=== PATIENT | female | born 1945 | race Caucasian/White ===

== ENCOUNTER 2016-08-08 16:14 | Emergency (ER) | payer MEDICARE, OTHER ==
--- NOTE | 2016-08-08 17:12 | ERNOTE ---
Medical Problem HPI - Narrative Date of Service: 08/08/16 - General Chief Complaint: General Assessment Time Seen by Provider: 08/08/16 17:04 Source: patient, RN notes reviewed Exam Limitations: no limitations - Immun/Allergies/Home Medications Immunizations: IMMUNIZATION HX Immunizations Up to Date Yes History of Influenza Vaccine Yes Hx Pneumococcal Vaccination Yes Allergies/Adverse Reactions: Allergies iron Allergy (Verified 08/08/16 16:30) borax Allergy (Uncoded 08/08/16 16:30) Home Medications: HOME MEDICATIONS Bimatoprost [Lumigan] 1 drop OP HS 12/02/15 [Last Taken Unknown] Timolol Maleate [Timoptic] 1 drop RIGHTEYE 0700 12/02/15 [Last Taken Unknown] - History of Present History Narrative: Patient presents with numbness and tingling sensation to her arms and legs and face. Patient says she's had a stroke roughly a month ago. Left ear left sided facial palsy slight weakness on the left side. She's been under a lot of stress. She has seen her doctor who started her on a new anxiety medicine. Sertaline, she does feel maybe this is anxiety related, weak in her legs. Symptoms since then in the ER have improved the numbness and tingling has gone but she still slightly weak in the leg she describes it as "Jell-O" denies any chest pain headache abdominal pain shortness of breath no fever or nasal congestion runny nose. She presented to the ER by private vehicle, and is fully ambulatory. Date (Duration): 08/08/16 Time (Timing): 13:00 Timing: intermittent Review of Systems - Review of Systems Constitutional: Absent: fever, chills EYE: Absent: blurred vision, double vision, vision changes Respiratory: Absent: shortness of breath, cough, orthopnea Cardiology: Absent: chest pain, palpitations, syncope Musculoskeletal: Absent: back pain, muscle pain, muscle stiffness, neck pain All Other Systems: All systems neg except as marked - Patient's Past Medical History Patient History - Medical: Glaucoma Patient History - Cancer: No Hx of Cancer Patient History - Surgical Procedures: Cataracts, Tubal Ligation, Other - Social History Living Situations: home Smoking Status: Current every day smoker Have you smoked in the past 12 months: Yes Alcohol Use: none Drug Use: none Physical Exam - Physical Exam General Appearance: Present: wd/wn, alert, no apparent distress Ears, Nose, Throat: Present: normal ENT inspection, normal pharynx Neck: Present: normal inspection, nontender Respiratory: Present: no respiratory distress, normal breath sounds, no accessory muscle use, chest nontender, lungs clear Cardiovascular/Chest: Present: regular rate, rhythm, no murmur, normal peripheral pulses Gastrointestinal/Abdominal: Present: normal bowel sounds, nontender, nondistended, soft Back Exam: Present: normal inspection, normal range of motion, no CVA tenderness , no vertebral tenderness Extremity Exam: Present: normal inspection, non-tender, no edema, normal range of motion Neurological Exam: Present: alert, oriented, normal mood/affect, no motor/ sensory deficits, facial droop - left-sided facial droop that's chronic in nature at baseline., other - patient does not have any drift no aphasia no slurred speech and left facial droop that's at baseline good equal power in the lower and upper extremities 5 out of 5 Skin Exam: Present: normal color, warm/dry Lymphatic Exam: Present: no adenopathy ED Progress - Results and Orders Patient's Lab Results:: I have reviewed the patient's lab results. - Vital Signs Patient's Vital Signs:: I have reviewed the patient's vital signs. Vital Signs: Vital Signs 08/08/16 16:26 Temperature 35.9 C L Pulse Rate 73 Respiratory 14 Rate Blood Pressure 168/105 O2 Sat by Pulse 95 Oximetry - Progress/Reassessment Chief Complaint: General Assessment Progress:: Improved - Transfer of Care Expected Disposition: Discharge Additional Notes: Patient told well no further symptoms wants to go home. He'll continue home meds follow-up family doctor in 2-3 days return back to the ER with any change or worsening symptoms. To stop her current medications warning Signs and Symptoms have been reviewed with the patient returned back to the ER with good understanding Departure - Departure Clinical Impression: Paresthesia, Anxiety, History of CVA (cerebrovascular accident) Disposition: Home Follow Up Needed Condition: Fair Instructions: Panic Attacks, [id number], Paresthesia, [id number] Referrals: Otto Winslow MD [Primary Care Provider] -
[2016-08-08] MEDS ORDERED: LORazepam 1 MG TABLET PO ONE (17:13)
[2016-08-08 17:32] LABS: Mean Corpuscular Hemoglobin 30.4 pg (27-31); Mean Corpuscular Hgb Conc 34.2 g/dl (32-36); Mean Platelet Volume 9.2 fl (6.0-9.5); Neutrophil # 7.8 K/mm3 (1.3-6.0); Neutrophil % 84.3 % (42-75.0); Platelet Count 273 K/mm3 (150-450); Red Blood Count 4.27 M/mm3 (4.2-5.4); Red Cell Distribution Width 12.3 % (11.5-14.0); White Blood Count 9.3 K/mm3 (4.0-10.5)
[2016-08-08] MEDS ORDERED: LORazepam 1 MG TABLET ONE (17:42)
[2016-08-08 17:47] LABS: BUN/Creatinine Ratio 12.3 (9.0-21.6)
[2016-08-08 17:48] LABS: Albumin * 3.6 gm/dl (3.4-5.0); Anion Gap 11.6 mmol/L (6.8-13.8); Bilirubin, Total 0.3 mg/dL (0.0-1.1); Ca. Corrected For Albumin 8.7 mg/dL (8.4-10.2); Calcium * 8.7 mg/dL (7.9-10.9); Carbon Dioxide 25.9 mmol/L (24-32.6); Potassium 3.5 mmol/L (3.4-4.6); Total Protein 6.9 gm/dL (6.2-8.2)
[2016-08-08 18:16] VITALS: BP 155/70
[2016-08-08 18:22] LABS: Urine Appearance Clear; Urine Bacteria None Seen; Urine Bilirubin Negative (NEGATIVE); Urine Blood 10 /ul (NEGATIVE); Urine Color Yellow; Urine Ketone 5 mg/dL (NEGATIVE); Urine Nitrite Negative (NEGATIVE); Urine Protein Negative (NEGATIVE); Urine RBC 0-5 /hpf (0-5); Urine Urobilinogen Normal (NORMAL); Urine WBC 0-5 /hpf (0-5)
== END 2016-08-08 18:38 | disposition home or self-care (01) ==
LOC: ER 16:14
DX: F41.9 Anxiety disorder, unspecified (principal); R20.0 Anesthesia of skin; Z86.73 Personal history of transient ischemic attack (TIA), and cerebral infarction without residual deficits; F17.200 Nicotine dependence, unspecified, uncomplicated

== ENCOUNTER 2016-09-06 18:03 | Emergency (ER) | payer MEDICARE, OTHER ==
[2016-09-06] MEDS ORDERED: ALPRAZolam 0.25 MG TABLET PO ONE (18:27)
[2016-09-06] MEDS ORDERED: ALPRAZolam 0.25 MG TABLET ONE (18:31)
--- NOTE | 2016-09-06 18:32 | ERNOTE ---
Medical Problem HPI - General Chief Complaint: General Assessment Time Seen by Provider: 09/06/16 18:07 Source: patient Exam Limitations: no limitations - Immun/Allergies/Home Medications Immunizations: IMMUNIZATION HX Immunizations Up to Date Yes History of Influenza Vaccine Yes Hx Pneumococcal Vaccination Yes Allergies/Adverse Reactions: Allergies iron Allergy (Verified 09/06/16 18:17) borax Allergy (Uncoded 09/06/16 18:17) Home Medications: HOME MEDICATIONS Bimatoprost [Lumigan] 1 drop OP HS 12/02/15 [Last Taken Unknown] Timolol Maleate [Timoptic] 1 drop RIGHTEYE 0700 12/02/15 [Last Taken Unknown] ALPRAZolam [Xanax] 0.25 mg PO BID PRN #10 tab 09/06/16 [Last Taken Unknown] - History of Present History Narrative: Patient is here as she is not feeling well. She had a stroke on 07/21/16, was treated with thrombolytics and flown to [facility], she still has some left sided facial weakness. She denies any current new weakness, only states that both legs 'feel like noodles' and this does not feel like a stroke' She has been very anxious and stressed, about a year ago her started to have multiple health problems and she had the CVA in June. She tried a couple different antidepressants, had a reaction to zoloft and when given prescription of lexapro was afraid to take it as the side effects listed CVA and glaucoma which she both has Review of Systems - Review of Systems Constitutional: Present: malaise. Absent: recent illness, fever EYE: Absent: blurred vision, double vision ENT: Absent: nose congestion, sore throat Respiratory: Present: shortness of breath, cough Cardiology: Present: chest pain - one brief stab earlier today Gastrointestinal/Abdominal: Absent: nausea, vomiting, diarrhea, abdominal pain Genitourinary: Present: no symptoms reported Skin: Absent: rash Neurological: Present: See HPI, weakness. Absent: headache - Patient's Past Medical History Patient History - Medical: Anxiety, Depression, Glaucoma Patient History - Cardiac/Respiratory: CVA/Stroke Patient History - Cancer: No Hx of Cancer Patient History - Surgical Procedures: Cataracts, Tubal Ligation, Other Patient History - Other: None - Social History Living Situations: spouse Abuse History: No History of abuse Psych History: Hx of Anxiety, Hx of Depression Smoking Status: Current every day smoker Have you smoked in the past 12 months: Yes Do you dip or chew tobacco: No Patient requests Smoking Cessation Consult: No Initiate information on Smoking Cessation: No Alcohol Use: none Drug Use: none - Immunizations Immunizations Up to Date: Yes Hx Pneumococcal Vaccination: Yes History of Influenza Vaccine: Yes Physical Exam - Physical Exam General Appearance: Present: wd/wn, alert, no apparent distress, anxious Eye Exam: Normal inspection: bilateral, PERRL: bilateral, EOMI: bilateral Ears, Nose, Throat: Present: normal ENT inspection, hearing grossly normal, normal pharynx Neck: Present: normal inspection, nontender, supple Respiratory: Present: no respiratory distress, no accessory muscle use, lungs clear, decreased breath sounds Cardiovascular/Chest: Present: regular rate, rhythm, no murmur Gastrointestinal/Abdominal: Present: nontender, nondistended, soft Extremity Exam: Present: normal inspection, no edema Neurological Exam: Present: alert, oriented, normal mood/affect, no motor/ sensory deficits, 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 - Vital Signs Patient's Vital Signs:: I have reviewed the patient's vital signs. Vital Signs: Vital Signs 09/06/16 18:07 Temperature 36.7 C Pulse Rate 81 Respiratory 15 Rate Blood Pressure 182/84 O2 Sat by Pulse 99 Oximetry - EKG EKG: NSR, unchanged from - 07/21/2016, other - no acute changes EKG read: Interp. by me - Progress/Reassessment Chief Complaint: General Assessment Progress Note-Subjective: 09/06/16 19:24 patient feeling much better, calm and relaxed discussed plan and follow up, difference between acute relieve medication and daily meds Departure - Departure Clinical Impression: Anxiety Disposition: Home self-care Condition: Good Instructions: Panic Attacks, [id number] Additional Instructions: call Dr Winslow for follow up discuss with Dr Winslow and possibly your pharmacist what anti anxiety medication would be best for you and whether the lexapro is safe to take take the xanax as needed Referrals: Otto Winslow MD [Primary Care Provider] - Prescriptions: ALPRAZolam [Xanax] 0.25 mg PO BID PRN #10 tab PRN Reason: Anxiety
--- OUTSIDE RECORDS SUMMARY | 2016-09-06 18:39 | XMS REPORT | Continuity of Care Document ---
:1945 Author Organization [facility] ([facility]) Address [address] [place] [address] Phone [phone] Care Team Providers Name Role Phone Otto Winslow Primary Care Provider [phone] Source Comments This disclosure is being made pursuant to the Care Everywhere program, applicable federal and state laws, and may not contain all informaitonavailable regarding this patient.[facility] ([facility]) Active Allergies and Adverse Reactions No Known Allergies Current Medications Prescription Sig. Disp. Refills Start Date End Date Status bimatoprost (LUMIGAN) Instill 1 Drop onto Active 0.01 % ophthalmic both eyes every solution evening. timolol 0.5 % Instill 1 Drop onto Active ophthalmic the right eye every gel-forming solution morning. umeclidinium (INCRUSE Use 1 Puff by Active ELLIPTA) 62.5 inhalation daily. mcg/actuation inhaler aspirin 81 mg Take 1 tablet (81 30 tablet 11 07/23/2016 Active chewable tablet mg total) by mouth daily. atorvastatin 40 mg Take 1 tablet (40 30 tablet 11 07/23/2016 Active tablet mg total) by mouth daily. Active Problems Problem Noted Date Facial droop - left lower 07/22/2016 Dysarthria 07/22/2016 Left hand weakness 07/22/2016 Most Recent Encounters Date Type Specialty Providers Description 07/23/2016 Office Visit Heart and Vascular Default, Other Chief Comp: Patient Billg - Defo Reported Reason For Visit 07/23/2016 Hospital Encounter Heart and Vascular Olaf Ramírez Chief Comp: Patient MD Josué Reported Reason For Sigurdsson, Visit MD Nasrin 07/22/2016 - Hospital Encounter General Care Dre Celaya Dx: Dysarthria 07/23/2016 Inpatient - Steven Farr MD (Primary Dx) Sanford Walker MD Guerrero, Waldo (Neuro)MD Social History Tobacco Use Types Packs/Day Years Used Date Current Every Day Smoker 2 Alcohol Use Drinks/Week oz/Week Comments No Last Filed Vital Signs Vital Sign Reading Time Taken Blood Pressure 167/75 07/23/2016 12:14 PM SPA ASSOCIATE Pulse 66 07/23/2016 8:15 AM SPA ASSOCIATE Temperature 36.5 C (97.7 F) 07/23/2016 12:14 PM SPA ASSOCIATE Respiratory Rate 18 07/23/2016 6:40 AM SPA ASSOCIATE Height 1.575 m (5' 2.01") 07/23/2016 3:01 PM SPA ASSOCIATE Weight 70.6 kg (155 lb 10.3 oz) 07/23/2016 3:01 PM SPA ASSOCIATE Body Mass Index 28.46 07/23/2016 3:01 PM SPA ASSOCIATE Oxygen Saturation 93% 07/23/2016 12:14 PM SPA ASSOCIATE Plan of Care Health Maintenance Due Date Last Done Comments Hepatitis B Vaccine (1 of 3 - Primary 1945 Series) Tdap Vaccine 1954 Td Vaccine 1961 Mammogram 1983 Colonoscopy 05/21/1993 Zoster Vaccine 2003 Osteoporosis Screening (DXA Bone Density) 2008 Pneumococcal Vaccine (1 of 2 - PCV13) 2008 Influenza Vaccine: Seasonal (#1) 02/23/2016 Lipid Disorder Screening 07/23/2021 07/23/2016, 07/22/2016 Results from Last 3 Months ECHO ADULT - TRANSESOPHAGEAL ECHOCARDIOGRAM (RICARDO) (07/26/2016 1:32 PM) Component Value Range Interpretation Summary TRANSESOPHAGEAL ECHOCARDIOGRAM 1. The interatrial septum is intact with no evidence for an atrial septal defect or patent foramen ovale. 2. No thrombus is detected in the left atrial appendage. 3. Descending aorta atheroma noted. 4. Mild aortic valve insufficiency by color Doppler. Patient Height (cm) 157.5 cm Patient Weight (kg) 70.3 kg Systolic Pressure (mmHg) 161 mmHg Diastolic Pressure (mmHg) 83 mmHg BSA (meters^2) 1.7 m^2 Left Ventricle (LV) Normal left ventricular size. No obvious LV thrombus noted. Probable left ventricular hypertrophy. Low normal left ventricular systolic function. LV Ejection Fraction=50-55% (based on visual estimate). Normal left ventricular wall motion Right Ventricle (RV) Normal right ventricular size. Normal right ventricular systolic function. Left and Right Atria (LA, RA) Mildly enlarged left atrial size. No evidence of left atrial mass / thrombus No thrombus is detected in the left atrial appendage. No spontaneous contrast in LA. Normal right atrial size. Lipomatous hypertrophy of the interatrial septum The interatrial septum is intact with no evidence for an atrial septal defect. No interatrial septal aneurysm No interatrial shunt visualized by color doppler No right to left shunt by saline contrast Mitral Valve (MV) Normal mitral valve morphology and leaflet mobility No mitral valve stenosis. Mildly calcified mitral annulus No mitral regurgitation by color Doppler. Tricuspid Valve (TV) Normal tricuspid valve morphology There are no mobile echodensities seen on the TV to support endocarditis. Trace Tricuspid regurgitation, may be physiologic Aortic Valve (AoV) Trileaflet AoV without calcification or restricted leaflet mobility There are no mobile echodensities seen on the AoV to support endocarditis. Mild aortic insufficiency by color Doppler. Pulmonic Valve (PV) Normal pulmonic valve Trace pulmonic valve insufficiency by doppler. There are no mobile echodensities on the pulmonic valve to support vegetations. Aorta and Pulmonary Artery (Ao, PA) The ascending aorta is normal size Descending aorta atheroma noted Pericardium/Pleura There is no pericardial effusion. Procedures RICARDO ([id number]) Limited Doppler ([id number]) Color Flow ([id number]) Saline bubble study ([id number]) Informed consent was obtained after thorough explanation of the procedure, risks and benefits, with time allowed for the patient or patient medical collections representative's concerns and questions Pre-procedure ASA Category IV PreProcedure OF=782/83 mmHg. PreProcedure HR=67 bpm Pre Procedure O2 Sat=98 %. Pre Procedure RR=16 per min. Height=62 . Yzxupn=727 . BSA=1.76 m^2. RICARDO probe inserted proceeded without difficulty or apparent complications. RICARDO scope number 001 utilized for this exam. Post Procedure HD=449/55 mmHg. Post Procedure HR=60 bpm Post Procedure O2 Sat=95 %. Post Procedure RR=18 per min. Versed 1mg IV Fentanyl 25mcg IV Patient recovery: Patient recovered and dismissed in stable condition I was present for the morris portions of the procedure defined as conscious sedation, RICARDO probe insertion, Echo imaging, Probe removal, and patient recovery Inf. Vena Cava (IVC) / Pulm. Veins The IVC size appears normal (Visual estimate). IVC diameter change with respiration cannot be accurately assessed due to technical limitations. The following pulmonary veins were noted in normal position: 'left superior and right lower pulmonary veins' . 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 Component Value Range Glucose, Accu-Chek 74 65-99 mg/dL Specimen Blood, capillary PT/INR (PROTHROMBIN TIME/INR) VENOUS (07/23/2016 7:55 AM)Only the most recent of2 resultswithin the time period is included. Component Value Range PT (Prothrombin Time) 12 9-12 secs INR 1.2 <4.0 Specimen Blood HEMOGLOBIN A1C (07/23/2016 7:55 AM)Only the most recent of2 resultswithin the time period is included. Component Value Range Hemoglobin A1c 5.0Comment: 4.8-6.0 % Glycemic Control Guidelines: Non-diabetic <6% Goal <7% Therapeutic Action >8% Estimated Average Glucose 97Comment: mg/dL The estimated average glucose (eAG) calculated from the HbA1c changed on 13/03.See Laboratory Bulletins in the Department of Pathology Laboratory Services Handbook for a full discussion.Not e that the new calculated glucose will now be lower.The A1c result is unchanged. Specimen Whole Blood ALKALINE PHOSPHATASE (07/23/2016 7:55 AM) Component Value Range ALP 84 35-104 U/L Specimen Blood ALANINE AMINOTRANSFERASE (07/23/2016 7:55 AM) Component Value Range ALT 11Comment: 0-33 U/L The upper limit of normal for alanine aminotransferase (ALT) reference ranges for adults is controversial with some authorities recommending limit as low as 30 U/L for males and 19 U/L for females. Th ere is increased incidence of subclinical liver disease (e.g., early steatohepatitis) in patients with ALT values in the range of 31-41 U/L for males and 20-33 U/L for females. ALT values should alway s be interpreted in conjunction with clinical history, physical examination findings, and, if applicable, data from other diagnostic tests. Specimen Blood ASPARTATE AMINOTRANSFERASE (07/23/2016 7:55 AM) Component Value Range AST 19Comment: 0-32 U/L Adult reference ranges updated on 06/19/13 at 830am Specimen Blood TRIGLYCERIDES (07/23/2016 7:55 AM) Component Value Range Triglycerides 124Comment: 0-150 mg/dL Reference Ranges: Normal:<150 mg/dL Borderline-high:150-199 mg/dL High: 200-499 mg/dL Very high: > nm=395 mg/dL Specimen Blood HIGH DENSITY LIPOPROTEIN CHOL (07/23/2016 7:55 AM) Component Value Range HDL Cholesterol 43 >=41 mg/dL LDL - Calculated 121 <=130 mg/dL Non-HDL Cholesterol (Calc) 146 mg/dL Specimen Blood CHOLESTEROL (07/23/2016 7:55 AM) Component Value Range Cholesterol 189Comment: mg/dL Reference Range: Less than 200 mg/dL - desirable 200 - 240 mg/dL - increased risk Above 240 mg/dL - significant risk Specimen Blood PHOSPHORUS (07/23/2016 7:55 AM)Only the most recent of2 resultswithin the time period is included. Component Value Range Phosphorus 3.3Comment:New reference range installed 05/06/15. 2.5-4.5 mg/dL Specimen Blood MAGNESIUM (07/23/2016 7:55 AM)Only the most recent of2 resultswithin the time period is included. Component Value Range Magnesium 2.0 1.5-2.9 mg/dL Specimen Blood BASIC METABOLIC PANEL W/ CALCIUM (CHEM 8) (07/23/2016 7:55 AM)Only the most recent of2 resultswithin the time period is included. Component Value Range Sodium 145 135-145 mEq/L Potassium 3.7 3.5-5.0 mEq/L Chloride 110(H) 95-107 mEq/L CO2 24 22-29 mEq/L Anion Gap 11 8-18 mEq/L BUN 10 10-20 mg/dL Creatinine 0.7Comment: 0.5-1.0 mg/dL Creatinine switched to enzymatic method on 12/01/2010.GFR equation switched to IDMS-traceable MDRD equation on 12/01/2010. Calculated GFR values are not valid in clinical settings where serum creatinine is changing. Glucose 89Comment: 65-99 mg/dL The Expert Committee on the Diagnosis and Classification of Diabetes has defined impaired fasting glucose as greater than or equal to 100 mg/dL but less than 126 mg/dL.(Diabetes Care 28 (Suppl 1)S41,2005) Calcium 8.2(L) 8.5-10.5 mg/dL Calculated GFR 82 >60 mL/min/1.73 m2 Specimen Blood CBC (COMPLETE BLOOD COUNT) (07/23/2016 7:55 AM)Only the most recent of2 resultswithin the time period is included. Component Value Range WBC Count 7.0 3.7-10.5 K/MM3 RBC Count 4.40 4.00-5.20 M/MM3 Hemoglobin 13.1 11.9-15.5 g/dL Hematocrit 40 35-47 % MCV (Mean Corpuscular Volume) 90 82-99 FL MCH (Mean Corpuscular Hemoglobin) 30 25-35 PG MCHC (Mean Corpuscular Hemoglobin Concentration) 33 32-36 % Platelet Count 196 150-400 K/MM3 MPV (Mean Platelet Volume) 9.9 9.4-12.3 FL RBC Dist Width-STD 43.3 36.4-46.3 FL RBC Distrib Width 13.2 9.0-14.5 % Nucleated RBC 0 /[address] Blood [address] BRAIN WO CONTRAST ([id number]) (07/22/2016 11:42 PM) Impressions Impression: Right MCA stroke without evidence of hemorrhage. This final report is in agreement with the critical and emergent preliminary findings reported by the psychiatry resident container coordinator. Narrative Procedure: CT BRAIN WO CONTRAST ([id number]) Indication: Stroke Technique: Axial CT of the brain without IV contrast. Sagittal and coronal reformations are also provided for review. Comparison: MRI dated 07/22/2016 Findings: Redemonstration of the right MCA distribution stroke without evidence of hemorrhage. The ventricles, cortical sulci and basal cisterns are symmetric and age appropriate. Normal brainstem and posterior fossa. The scalp and calvarium are unremarkable. Procedure Note Placido, Incoming Imaging Results - TueJul 23, 2016 10:28 AM SPA ASSOCIATE Procedure: CT BRAIN WO CONTRAST ([id number]) Indication: Stroke Technique: Axial CT of the brain without IV contrast. Sagittal and coronal reformations are also provided for review. Comparison: MRI dated 07/22/2016 Findings: Redemonstration of the right MCA distribution stroke without evidence of hemorrhage. The ventricles, cortical sulci and basal cisterns are symmetric and age appropriate. Normal brainstem and posterior fossa. The scalp and calvarium are unremarkable. IMPRESSION Impression: Right MCA stroke without evidence of hemorrhage. This final report is in agreement with the critical and emergent preliminary findings reported by the psychiatry resident container coordinator. ECG - EKG 12 LEAD (07/22/2016 8:41 AM) Component Value Range ECG SEVERITY - NORMAL ECG - VENT. RATE 75 bpm RR 800 ms P-R INTERVAL 180 ms QRSD INTERVAL 82 ms QT INTERVAL 416 ms QTC INTERVAL 465 ms P AXIS 51 degrees QRS AXIS 40 degrees T WAVE AXIS 19 degrees REPORT SINUS RHYTHM No prior tracing available for comparison Interpreting Physician: RENATA CERNA MD HEPATIC FUNCTION PANEL (07/22/2016 6:19 AM) Component Value Range Albumin 3.6 3.4-4.8 g/dL ALP 79 35-104 U/L Bilirubin Total 0.3 <=1.2 mg/dL Bilirubin, Direct <0.2 0.0-0.2 mg/dL AST 20 0-32 U/L ALT 11 0-33 U/L Total Protein 6.1 6.0-8.0 g/dL Specimen Blood MRI BRAIN W/WO CONTRAST ([id number]) (07/22/2016 3:42 AM) Impressions Impression: 1.Subacute infarct in the right motor strip. 2. Elongated appearance of the vessels compatible with sequela of chronic hypertension. Otherwise unremarkable head and neck MRA. Findings known to the primary team at the time of dictation. This final report is in agreement with the critical and emergent preliminary findings reported by the psychiatry resident container coordinator. Narrative Procedure: MRI BRAIN W/WO CONTRAST ([id number]), MRA HEAD AND NECK W/WO CONTRAST ([id number], [id number]) Indication: Stroke Technique: 1. Multisequence, multiplanar MRI of the brain before and after the uneventful administration of 10 mL GadavistIV contrast. 2. Multisequence, multiplanar MRA of the neck before and after the uneventful administration of 10 mL GadavistIV contrast. Source and MIP images were obtained and reviewed. 3D images were processed on a separate workstation. 3. Multisequence, multiplanar MRA of the head before and after the uneventful administration of 10 mL GadavistIV contrast. Source and MIP images were obtained and reviewed. 3D images were processed on a separate workstation. Comparison: None Findings: - MRI Brain: There is diffusion restriction in a small region of the right MCA distribution, mostly affecting the right precentral gyrus. Small focus of enhancement in this region is also seen. 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 A focus of blooming on GRE is demonstrated in the right cerebellar hemisphere, likely representing a focal old microhemorrhage versus cavernoma. Otherwise unremarkable brainstem and posterior fossa. The ventricles, cortical sulci and basal cisterns are also otherwise symmetric and appropriate. The pituitary and suprasellar region are unremarkable. Major intracranial flow-voids are preserved. Normal orbits. The paranasal sinuses and mastoid air cells are clear. Normal bone marrow signal. - MRA Neck: Diffusely elongated appearance of the vessels bilaterally compatible with sequela of hypertension. There is classic aortic branching without significant ostial stenosis. There is normal course and caliber of the remainder of the common carotid arteries. Internal and external carotid arteries are within normal limits. The vertebral arteries originate from the subclavian arteries without significant ostial stenosis. There is normal course and caliber of the cervical vertebral arteries. - MRA Head: Diffusely elongated appearance of the vessels bilaterally compatible with sequela of hypertension. The distal internal carotid arteries are unremarkable. Normal distal vertebral and basilar arteries. There is no significant stenosis in the anterior, middle or posterior cerebral arteries. No evidence of aneurysm or malformation. - Extravascular Findings: Grossly normal thyroid and paravertebral soft tissues. Procedure Note Placido, Incoming Imaging Results - [facility] Jul 22, 2016 2:32 PM SPA ASSOCIATE Procedure: MRI BRAIN W/WO CONTRAST ([id number]), MRA HEAD AND NECK W/WO CONTRAST ([id number], [id number]) Indication: Stroke Technique: 1. Multisequence, multiplanar MRI of the brain before and after the uneventful administration of 10 mL Gadavist IV contrast. 2. Multisequence, multiplanar MRA of the neck before and after the uneventful administration of 10 mL Gadavist IV contrast. Source and MIP images were obtained and reviewed. 3D images were processed on a separate workstation. 3. Multisequence, multiplanar MRA of the head before and after the uneventful administration of 10 mL Gadavist IV contrast. Source and MIP images were obtained and reviewed. 3D images were processed on a separate workstation. Comparison: None Findings: - MRI Brain: There is diffusion restriction in a small region of the right MCA distribution, mostly affecting the right precentral gyrus. Small focus of enhancement in this region is also seen. 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 A focus of blooming on GRE is demonstrated in the right cerebellar hemisphere, likely representing a focal old microhemorrhage versus cavernoma. Otherwise unremarkable brainstem and posterior fossa. The ventricles, cortical sulci and basal cisterns are also otherwise symmetric and appropriate. The pituitary and suprasellar region are unremarkable. Major intracranial flow-voids are preserved. Normal orbits. The paranasal sinuses and mastoid air cells are clear. Normal bone marrow signal. - MRA Neck: Diffusely elongated appearance of the vessels bilaterally compatible with sequela of hypertension. There is classic aortic branching without significant ostial stenosis. There is normal course and caliber of the remainder of the common carotid arteries. Internal and external carotid arteries are within normal limits. The vertebral arteries originate from the subclavian arteries without significant ostial stenosis. There is normal course and caliber of the cervical vertebral arteries. - MRA Head: Diffusely elongated appearance of the vessels bilaterally compatible with sequela of hypertension. The distal internal carotid arteries are unremarkable. Normal distal vertebral and basilar arteries. There is no significant stenosis in the anterior, middle or posterior cerebral arteries. No evidence of aneurysm or malformation. - Extravascular Findings: Grossly normal thyroid and paravertebral soft tissues. IMPRESSION Impression: 1. 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 2. Elongated appearance of the vessels compatible with sequela of chronic hypertension. Otherwise unremarkable head and neck MRA. Findings known to the primary team at the time of dictation. This final report is in agreement with the critical and emergent preliminary findings reported by the psychiatry resident container coordinator. MRA HEAD AND NECK W/WO CONTRAST ([id number], [id number]) (07/22/2016 3:40 AM) Impressions Impression: 1.Subacute infarct in the right motor strip. 2. Elongated appearance of the vessels compatible with sequela of chronic hypertension. Otherwise unremarkable head and neck MRA. Findings known to the primary team at the time of dictation. This final report is in agreement with the critical and emergent preliminary findings reported by the psychiatry resident container coordinator. Narrative Procedure: MRI BRAIN W/WO CONTRAST ([id number]), MRA HEAD AND NECK W/WO CONTRAST ([id number], [id number]) Indication: Stroke Technique: 1. Multisequence, multiplanar MRI of the brain before and after the uneventful administration of 10 mL GadavistIV contrast. 2. Multisequence, multiplanar MRA of the neck before and after the uneventful administration of 10 mL GadavistIV contrast. Source and MIP images were obtained and reviewed. 3D images were processed on a separate workstation. 3. Multisequence, multiplanar MRA of the head before and after the uneventful administration of 10 mL GadavistIV contrast. Source and MIP images were obtained and reviewed. 3D images were processed on a separate workstation. Comparison: None Findings: - MRI Brain: There is diffusion restriction in a small region of the right MCA distribution, mostly affecting the right precentral gyrus. Small focus of enhancement in this region is also seen. 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 A focus of blooming on GRE is demonstrated in the right cerebellar hemisphere, likely representing a focal old microhemorrhage versus cavernoma. Otherwise unremarkable brainstem and posterior fossa. The ventricles, cortical sulci and basal cisterns are also otherwise symmetric and appropriate. The pituitary and suprasellar region are unremarkable. Major intracranial flow-voids are preserved. Normal orbits. The paranasal sinuses and mastoid air cells are clear. Normal bone marrow signal. - MRA Neck: Diffusely elongated appearance of the vessels bilaterally compatible with sequela of hypertension. There is classic aortic branching without significant ostial stenosis. There is normal course and caliber of the remainder of the common carotid arteries. Internal and external carotid arteries are within normal limits. The vertebral arteries originate from the subclavian arteries without significant ostial stenosis. There is normal course and caliber of the cervical vertebral arteries. - MRA Head: Diffusely elongated appearance of the vessels bilaterally compatible with sequela of hypertension. The distal internal carotid arteries are unremarkable. Normal distal vertebral and basilar arteries. There is no significant stenosis in the anterior, middle or posterior cerebral arteries. No evidence of aneurysm or malformation. - Extravascular Findings: Grossly normal thyroid and paravertebral soft tissues. Procedure Note Placido, Incoming Imaging Results - [facility] Jul 22, 2016 2:32 PM SPA ASSOCIATE Procedure: MRI BRAIN W/WO CONTRAST ([id number]), MRA HEAD AND NECK W/WO CONTRAST ([id number], [id number]) Indication: Stroke Technique: 1. Multisequence, multiplanar MRI of the brain before and after the uneventful administration of 10 mL Gadavist IV contrast. 2. Multisequence, multiplanar MRA of the neck before and after the uneventful administration of 10 mL Gadavist IV contrast. Source and MIP images were obtained and reviewed. 3D images were processed on a separate workstation. 3. Multisequence, multiplanar MRA of the head before and after the uneventful administration of 10 mL Gadavist IV contrast. Source and MIP images were obtained and reviewed. 3D images were processed on a separate workstation. Comparison: None Findings: - MRI Brain: There is diffusion restriction in a small region of the right MCA distribution, mostly affecting the right precentral gyrus. Small focus of enhancement in this region is also seen. 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 A focus of blooming on GRE is demonstrated in the right cerebellar hemisphere, likely representing a focal old microhemorrhage versus cavernoma. Otherwise unremarkable brainstem and posterior fossa. The ventricles, cortical sulci and basal cisterns are also otherwise symmetric and appropriate. The pituitary and suprasellar region are unremarkable. Major intracranial flow-voids are preserved. Normal orbits. The paranasal sinuses and mastoid air cells are clear. Normal bone marrow signal. - MRA Neck: Diffusely elongated appearance of the vessels bilaterally compatible with sequela of hypertension. There is classic aortic branching without significant ostial stenosis. There is normal course and caliber of the remainder of the common carotid arteries. Internal and external carotid arteries are within normal limits. The vertebral arteries originate from the subclavian arteries without significant ostial stenosis. There is normal course and caliber of the cervical vertebral arteries. - MRA Head: Diffusely elongated appearance of the vessels bilaterally compatible with sequela of hypertension. The distal internal carotid arteries are unremarkable. Normal distal vertebral and basilar arteries. There is no significant stenosis in the anterior, middle or posterior cerebral arteries. No evidence of aneurysm or malformation. - Extravascular Findings: Grossly normal thyroid and paravertebral soft tissues. IMPRESSION Impression: 1. 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 2. Elongated appearance of the vessels compatible with sequela of chronic hypertension. Otherwise unremarkable head and neck MRA. Findings known to the primary team at the time of dictation. This final report is in agreement with the critical and emergent preliminary findings reported by the psychiatry resident container coordinator. LIPID PANEL (07/22/2016 2:25 AM) Component Value Range Specimen Type Fasting Cholesterol 195Comment: mg/dL Reference Range: Less than 200 mg/dL - desirable 200 - 240 mg/dL - increased risk Above 240 mg/dL - significant risk Triglycerides 139Comment: 0-150 mg/dL Reference Ranges: Normal:<150 mg/dL Borderline-high:150-199 mg/dL High: 200-499 mg/dL Very high: > bz=148 mg/dL HDL Cholesterol 42 >=41 mg/dL LDL - Calculated 125 <=130 mg/dL Non-HDL Cholesterol (Calc) 153Comment: mg/dL The reference ranges for Non-HDL-C are based on National Cholesterol Education III guidelines: Desirable: <130 mg/dL Borderline High: 130-159 mg/dL High:160-189 mg/dL Very High: > tu=084 mg/dL Specimen Blood PTT (PARTIAL THROMBOPLASTIN TIME) (07/22/2016 2:25 AM) Component Value Range PTT 22 22-31 secs Specimen Blood
[2016-09-06 18:40] LABS: Hemoglobin 12.1 gm/dL (12.5-16.0); Mean Corpuscular Hemoglobin 30.1 pg (27-31); Mean Corpuscular Hgb Conc 32.7 g/dl (32-36); Mean Platelet Volume 9.1 fl (6.0-9.5); Neutrophil # 5.6 K/mm3 (1.3-6.0); Neutrophil % 64.8 % (42-75.0); Platelet Count 268 K/mm3 (150-450); Red Blood Count 4.02 M/mm3 (4.2-5.4); Red Cell Distribution Width 13.1 % (11.5-14.0); White Blood Count 8.7 K/mm3 (4.0-10.5)
[2016-09-06 18:58] LABS: ALT 17 U/L (19-67); AST 14 U/L (0-48); Albumin * 3.2 gm/dl (3.4-5.0); Alkaline Phosphatase * 79 U/L (50-170); Anion Gap 10.8 mmol/L (6.8-13.8); BUN/Creatinine Ratio 16.9 (9.0-21.6); Bilirubin, Total 0.2 mg/dL (0.0-1.1); Blood Urea Nitrogen 14 mg/dL (3-23); Ca. Corrected For Albumin 8.8 mg/dL (8.4-10.2); Calcium * 8.5 mg/dL (7.9-10.9); Carbon Dioxide 28.9 mmol/L (24-32.6); Chloride 109 mmol/L (97-106); Glucose * 138 mg/dL (70-110); Potassium 3.7 mmol/L (3.4-4.6); Sodium 145 mmol/L (132-142); Total Protein 6.4 gm/dL (6.2-8.2); Troponin I Less than 0.017 ng/ml (0.00-0.10)
[2016-09-06 19:25] VITALS: BP 140/71
== END 2016-09-06 19:30 | disposition home or self-care (01) ==
LOC: ER 18:03
DX: F41.9 Anxiety disorder, unspecified (principal); F17.210 Nicotine dependence, cigarettes, uncomplicated; Z86.73 Personal history of transient ischemic attack (TIA), and cerebral infarction without residual deficits